=== PATIENT | female | born 1995 | race Caucasian/White ===

== ENCOUNTER → 2018-06-08 | Outpatient (CLI) | payer OTHER ==
[2018-06-08 15:01] LABS: Basophils # (A) 0.1 k/uL (0-0.2); Basophils % (A) 1 %; Eosinophils # (A) 0.1 k/uL (0-0.7); Eosinophils % (A) 1 %; HCT 40.6 % (34.0-46.0); HGB 13.5 gm/dL (11.4-16.0); Lymphocytes # (A) 2.6 k/uL (1.0-4.8); Lymphocytes % (A) 32 %; MCH 31.6 pg (25.0-35.0); MCHC 33.3 g/dL (31.0-37.0); MCV 95.2 fL (80.0-100.0); Mean Platelet Volume 7.6; Monocytes # (A) 0.4 k/uL (0-1.0); Monocytes % (A) 5 %; Neutrophils # (A) 4.9 k/uL (1.3-7.7); Neutrophils % (A) 59 %; Platelet Count 248 k/uL (150-450); RBC 4.27 m/uL (3.80-5.40); RDW 12.6 % (11.5-15.5); WBC 8.2 k/uL (4.0-11.0)
== END | disposition home or self-care (01) ==
LOC: LABWHC1 14:24
PROVIDERS: ATTEND Obstetrics & Gynecology
DX: N92.0 Excessive and frequent menstruation with regular cycle (principal)
CPT/HCPCS: 36415; 85025

== ENCOUNTER → 2022-03-27 | Outpatient (CLI) | payer BC ==
[2022-03-27 14:49] LABS: Basophils # (A) 0.04 X 10*3/uL (0.00-0.10); Basophils % (A) 0.6 %; Eosinophils # (A) 0.06 X 10*3/uL (0.04-0.35); Eosinophils % (A) 0.8 %; HCT 40.4 % (37.2-46.3); HGB 13.1 g/dL (12.0-15.0); Immature Grans, Automated 0.4 %; Lymphocytes # (A) 2.01 X 10*3/uL (0.90-5.00); Lymphocytes % (A) 28.3 %; MCH 31.3 pg (27.0-32.0); MCHC 32.4 g/dL (32.0-37.0); MCV 96.7 fL (80.0-97.0); Mean Platelet Volume 11.8 fL (9.5-12.2); NRBC Per 100 WBC 0 /100 WBCS (0.0-0.0); Neutrophils # (A) 4.46 X 10*3/uL (1.80-7.70); Neutrophils % (A) 62.9 %; Platelet Count 268 X 10*3/uL (140-440); RBC 4.18 X 10*6/uL (4.10-5.20); RDW 11.9 % (11.5-14.5)
[2022-03-27 16:14] LABS: Estradiol 80.6 pg/mL
[2022-03-27 16:17] LABS: ALT 32 U/L (8-44); AST 25 U/L (13-35); Albumin 4.5 g/dL (3.8-4.9); Albumin/Globulin Ratio 1.73 (1.60-3.17); Alkaline Phosphatase 73 U/L (41-126); Blood Urea Nitrogen 10.6 mg/dL (9.0-27.0); Calcium 9.7 mg/dL (8.7-10.3); Carbon Dioxide 23.9 mmol/L (20.0-27.5); Chloride 103 mmol/L (96-109); Chol/HDL Ratio 3.06 Ratio; Follicle Stimulating Hormone 5.4 mIU/mL; Globulin 2.6 g/dL (1.6-3.3); Glucose 100 mg/dL (70-110); Luteinizing Hormone 8.6 mIU/mL; Non-African American GFR(CKD) 101.8 (60.0-200.0); Potassium 4.6 mmol/L (3.5-5.5); Sodium 139 mmol/L (135-145); Total Protein 7.1 g/dL (6.2-8.2); VLDL Calculation 12.16 mg/dL (5.00-40.00)
== END | disposition home or self-care (01) ==
LOC: LABWHC1 08:34
PROVIDERS: ATTEND Family Medicine
DX: E78.5 Hyperlipidemia, unspecified (principal)
CPT/HCPCS: 36415; 80053; 80061; 82626; 82670; 83001; 83002; 83036; 83525; 84403; 84443; 85025

== ENCOUNTER 2024-01-30 23:58 | Outpatient (CLI) | payer BC ==
[2024-01-31 02:49] VITALS: BP 126/83; PULSE 91; RESP 16; TEMP 97.3
--- NOTE | 2024-02-11 09:28 | P.MSEPDOC ---
Presenting Problems - Arrival Data Date of Arrival on Unit: 01/30/24 Time of Arrival on Unit: 23:58 Mode of Transport: Ambulatory - Complaint OB-Reason for Admission/Chief Complaint: Possible Onset of Labor Comment: patient presents to triage with contractions 7 min apart, rating contractions 3/10 for pain. Medical History - Information : 1 Para: 0 Term: 0 : 0 Abortions: Spontaneous or Elective: 0 Number of Living Children: 0 - Gestational Age Gestational Age by ALEXANDR (wks/days): 38 Weeks and 0 Days Review of Systems - Review of Systems Constitutional: No problems Breast: No problems ENT: No problems Cardiovascular: No problems Respiratory: No problems Gastrointestinal: No problems Genitourinary: No problems Musculoskeletal: No problems Neurological: No problems Skin: No problems Vital Signs - Temperature Temperature: 97.3 F Temperature Source: Temporal Artery Scan - Pulse Pulse Oximetery Pulse Rate: 91 Pulse Assessment Method: Pulse Oximetry - Respirations Respiratory Rate: 16 Oxygen Delivery Method: Room Air O2 Sat by Pulse Oximetry: 97 - Blood Pressure Right Arm Blood Pressure: 126/83 Blood Pressure Mean: 97 Blood Pressure Source: Automatic Cuff Physician Notification - Physician Notified Physician Notified Date: 01/31/24 Physician Notified Time: 01:10 Physician: Greg Mendez Maternal Triage Index - Maternal Triage Index Presenting for scheduled procedure w/no complaint: No - Stat/Priority 1 Stat Priority 1: No - Urgent/Priority 2 Urgent Priority 2: No - Prompt/Priority 3 Prompt Priority 3: No - Non-Urgent/Priority 4 Non-Urgent Priority 4: Yes Criteria Met for Priority 4: patient presents to triage with contractions 7 min apart, rating contractions 3/10 for pain. Disposition - Disposition OB Disposition: Discharge to home Discharge Date: 01/31/24 Discharge Time: 02:31 I agree with the RN Medical Screening Exam: Yes Physician's MSE Comment: I have neither seen nor examined the patient. Case reviewed; plan agreed upon as documented in EMR&OBIX.: Yes Diagnosis: RELATED CONDITIONS, UNSPECIFIED, THIRD TRIMESTER
== END 2024-01-31 02:31 ==
LOC: FBPOP 23:58 → MERGE 23:58 → FBPOP 01-31 02:31
PROVIDERS: ATTEND Obstetrics & Gynecology
DX: O47.1 False labor at or after 37 completed weeks of gestation (principal); Z3A.38 38 weeks gestation of pregnancy; Z88.2 Allergy status to sulfonamides
CPT/HCPCS: 59025; 99213

== ENCOUNTER 2024-02-14 10:11 | Inpatient (IN) | payer BC ==
[2024-02-14] MEDS ORDERED: miSOPROStoL 200 MCG TAB PO PRN (10:34)
[2024-02-14] MEDS ORDERED: TRANEXAMIC 1,000 MG/100ML-NACL 1,000 MG in EMPTY BAG 1 BAG IV PRN (10:34)
[2024-02-14] MEDS ORDERED: LIDOCAINE 0.5% (PF) 5 MG/ML (50 ML SDV) SQ PRN (10:34)
[2024-02-14] MEDS ORDERED: CARBOPROST TROMETHAMINE 250 MCG/ML 1 ML AMP IM PRN (10:34)
[2024-02-14] MEDS ORDERED: METHYLERGONOVINE 0.2 MG/ML 1 ML AMP IM PRN (10:34)
[2024-02-14] MEDS ORDERED: TERBUTALINE 1 MG/ML VIAL SQ PRN (10:34)
[2024-02-14] MEDS ORDERED: OXYTOCIN 10 UNIT/ML 1 ML VIAL IM PRN (10:34)
[2024-02-14 12:30] LABS: Basophils % (A) 0 %; Eosinophils % (A) 0 %; HCT 36.7 % (34.0-46.0); HGB 12.7 gm/dL (11.4-16.0); Lymphocytes # (A) 1.5 k/uL (1.0-4.8); Lymphocytes % (A) 18 %; MCH 32.8 pg (25.0-35.0); MCHC 34.6 g/dL (31.0-37.0); MCV 94.9 fL (80.0-100.0); Mean Platelet Volume 10.8; Monocytes # (A) 0.3 k/uL (0-1.0); Monocytes % (A) 4 %; Neutrophils # (A) 6.3 k/uL (1.3-7.7); Neutrophils % (A) 76 %; Platelet Count 174 k/uL (150-450); RBC 3.86 m/uL (3.80-5.40); RDW 13.6 % (11.5-15.5); WBC 8.2 k/uL (3.8-10.6)
[2024-02-14] MEDS: LACTATED RINGERS 1,000 ML IV SCH (12:32)
[2024-02-14] MEDS: DINOPROSTONE 10 MG INSERT.ER VAGINAL ONE (13:04)
[2024-02-15] MEDS: NALBUPHINE 10 MG/ML (10 ML MDV) IV PRN (01:31)
[2024-02-15] MEDS: OXYTOCIN 30 UNITS/500 ML NS 30 UNIT in SALINE 1 500ML.BAG IV SCH (03:06)
[2024-02-15] MEDS ORDERED: ROPIVACAINE 5 MG/ML 30 ML VIAL ONE (10:30)
[2024-02-15] MEDS ORDERED: fentaNYL (PF) 50 MCG/ML 5 ML AMP ONE (10:30)
[2024-02-15] MEDS ORDERED: SODIUM CHLORIDE 0.9% 250 ML BAG ONE (10:30)
[2024-02-15] MEDS ORDERED: TRANEXAMIC 1,000 MG/100ML-NACL 1,000 MG in EMPTY BAG 1 BAG IV PRN ×2 (18:21→18:39)
[2024-02-15] MEDS ORDERED: CARBOPROST TROMETHAMINE 250 MCG/ML 1 ML AMP IM PRN ×2 (18:21→18:39)
[2024-02-15] MEDS ORDERED: miSOPROStoL 200 MCG TAB PO PRN ×2 (18:21→18:39)
[2024-02-15] MEDS: CITRIC ACID-SODIUM CITRATE 15 ML CUP PO ONE ×2 (18:35→20:39)
[2024-02-15] MEDS ORDERED: METHYLERGONOVINE 0.2 MG/ML 1 ML AMP IM PRN (18:39)
[2024-02-15] MEDS ORDERED: OXYTOCIN 10 UNIT/ML 1 ML VIAL IM PRN (18:39)
[2024-02-15] MEDS ORDERED: OXYTOCIN 30 UNITS/500 ML NS BAG IV ONE (18:52)
[2024-02-15] MEDS ORDERED: MORPHINE SULFATE (PF) 0.3 MG/0.3 ML SYR ONE (18:52)
[2024-02-15] MEDS ORDERED: fentaNYL (PF) 50 MCG/ML 2 ML AMP ONE (18:52)
[2024-02-15] MEDS ORDERED: ONDANSETRON 4 MG/2 ML VIAL ONE (18:52)
--- NOTE | 2024-02-15 19:36 | P.OP ---
Date of Procedure: 02/15/24 Preoperative Diagnosis: IUP at 40 and 0, oligohydramnios, arrest of dilation with noted cervical swelling suspected malpresentation, OP Postoperative Diagnosis: Same Procedure(s) Performed: Primary low-transverse section Anesthesia: spinal Surgeon: Shirin Noguera Special Systems Technician #1: Darby Willingham Estimated Blood Loss (ml): 680 IV fluids (ml): 600 Urine output (ml): 400 Pathology: other (Placenta) Condition: stable Disposition: observation Indications for Procedure: 28-year-old 1 para 0 at 40-0/7 weeks that presented to labor and delivery yesterday and had Cervidil placed for induction of labor around lunchtime for oligohydramnios. Patient was noted to be 1 to 2 cm upon placement of Cervidil. Patient made no change through the evening and Cervidil was removed around 1 AM, patient was noted to be attila every 1 to 2 minutes therefore Pitocin was held until 3 AM. Pitocin was begun per hospital protocol. Patient underwent amniotomy this morning noting scant clear fluid given diagnosis of oligohydramnios. heart tones have been category 1 to category 2 through the day. Patient made very slow progress to 8 cm. Patient did progressed to 9 cm and an hour later had significant cervical swelling with 8 cm appreciated on examination. Patient was counseled on exam and cervical swallowing noted. Patient elected primary . Discussion was had with patient and her significant other multiple questions were answered and decision was made together. Operative Findings: Viable male infant delivered, weight of 6 pounds 15 ounces, normal uterus tubes and ovaries were appreciated. Description of Procedure: The patient was prepped and draped in the usual fashion after spinal anesthesia was administered by the anesthesia department. A Pfannenstiel incision was made and extended of the abdominal cavity without difficulty. The bladder peritoneum was elevated and incised and reflected distally. A 2 cm incision was made in the transverse plane of the lower uterine segment to enter the uterus at which time clear fluid was noted. The incision was extended in both directions using the bandage scissors. The head was encountered within the field and delivered up and through the incision where the nose and mouth were thoroughly suctioned. Remainder of the infant was delivered onto the surgical field where the cord was doubly clamped, cut, and the infant was passed for resuscitative measures with weight as noted above. The placenta was delivered manually, intact, and was grossly normal with a grossly normal three-vessel cord. The uterus was exteriorized and the interior cavity of the uterus swept of any remaining placental and membranous fragments with a laparotomy sponge. The margins of the incision were grasped with Hurtado clamps and the incision closed in 2 layers. First layer was a running locking layer of 0 chromic from margin to margin followed by a second layer of imbricating 0 Vicryl from margin to margin. Any small points of bleeding were then made hemostatic with the Bovie. Once hemostasis was achieved, the posterior cul-de-sac was suctioned with a guard and the uterine and ovarian findings are as noted above. The uterus was replaced within the abdominal cavity and the gutters swept of any remaining blood fluid or clot. The incision was again reexamined and hemostasis was noted to be excellent. Any small point of bleeding were made hemostatic with the Bovie. Once hemostasis was achieved the parietal peritoneum was loosely reapproximated. The layer of muscles were examined and made hemostatic with the Bovie. Attention was then turned to the fascia which was closed with 2 running stitches of 0 Vicryl proceeding from 1 lateral edge to the other. The subcutaneous tissues were irrigated, made hemostatic with the Bovie, and reapproximated with a running stitch of 30 plain catgut. The skin was reapproximated with 4-0 Vicryl. Estimated blood loss for the case was approximately 680 mL. All sponge instrument and needle counts are correct. There were no complications. The patient tolerated the procedure well and proceeded to the recovery room in stable condition. Both mother and are resting comfortably in recovery.
--- NOTE | 2024-02-15 19:37 | P.HPOB ---
History of Present Illness H&P Date: 02/14/24 Chief Complaint: IUP at 40-0/7 weeks, oligohydramnios Is a 28-year-old 1 para 0 at 40-0/7 weeks that presented to the office for routine visit. NST and ultrasound for EFW CHRISTIAN was completed. Amniotic fluid and ex was noted to be 4.8, EFW 7 pounds 2 ounces or 20th percentile. Patient had a reactive NST. Patient was counseled on results of ultrasound and need for induction of labor. Patient states she was unsure whether or not her water broke in the shower this morning. Patient had initial gush of fluid but then no further leaking. AmniSure was negative on labor and delivery Patient has been receiving routine care which has been essentially uncomplicated. Patient has noted good movement denies contractions. Review of Systems Constitutional: Denies chills, Denies fatigue, Denies fever Ears, nose, mouth and throat: Denies headache Cardiovascular: Reports leg edema, Denies edema Respiratory: Denies dyspnea Gastrointestinal: Denies constipation, Denies diarrhea, Denies nausea, Denies vomiting Genitourinary: Reports Past Medical History Past Medical History: No Reported History History of Any Multi-Drug Resistant Organisms: None Reported Past Surgical History: No Surgical Hx Reported Past Anesthesia/Blood Transfusion Reactions: No Reported Reaction Past Psychological History: No Psychological Hx Reported Smoking Status: Never smoker Past Alcohol Use History: None Reported Past Drug Use History: None Reported Medications and Allergies Home Medications Medication Instructions Recorded Confirmed Type Vit No.179/Iron/Folic 1 each PO DAILY 01/30/24 02/14/24 History [ Tablet] Ascorbic Acid [Vitamin C] 500 mg PO DAILY 02/14/24 02/14/24 History Allergies Allergy/AdvReac Type Severity Reaction Status Date / Time Sulfa (Sulfonamide Allergy Rash/Hives Verified 02/14/24 10:33 Antibiotics) Exam Osteopathic Statement: *. No significant issues noted on an osteopathic structural exam other than those noted in the History and Physical/Consult. Vital Signs Temp Pulse Resp BP Pulse Ox 02/14/24 11:20 98.9 F 85 16 138/84 98 Intake and Output 02/13/24 02/14/24 02/14/24 22:59 06:59 14:59 Other: Weight 104.326 kg Targeted physical exam is performed this date General is well-nourished well-developed female in no acute distress, breathing is nonlabored, heart has a regular rate and rhythm, abdomen is gravid and appropriate gestational age, on cervical exam she is 1/70/-2 station vertex presentation, Cervidil is placed without difficulty. heart tones are noted to be category 1 and she is attila irregularly. Results Result Diagrams: 02/14/24 11:55 Assessment and Plan (1) Term Current Visit: Yes Status: Acute Code(s): Z34.90 - ENCNTR FOR SUPRVSN OF NORMAL , UNSP, UNSP TRIMESTER SNOMED Code(s): 67501682
[2024-02-15] MEDS ORDERED: METOCLOPRAMIDE 5 MG/ML 2 ML VIAL IVP PRN (19:41)
[2024-02-15] MEDS ORDERED: SIMETHICONE 80 MG CHEWABLE PO PRN (19:41)
[2024-02-15] MEDS ORDERED: ZOLPIDEM 5 MG TAB PO PRN (19:41)
[2024-02-15] MEDS ORDERED: diphenhydrAMINE 50 MG CAP PO PRN (19:41)
[2024-02-15] MEDS ORDERED: ONDANSETRON 4 MG/2 ML VIAL IVP PRN (19:41)
[2024-02-15] MEDS ORDERED: diphenhydrAMINE 25 MG CAP PO PRN (19:41)
[2024-02-15] MEDS ORDERED: diphenhydrAMINE 50 MG/ML 1 ML VIAL IVP PRN ×2 (19:41)
[2024-02-15] MEDS ORDERED: NALOXONE 0.4 MG/ML 1 ML VIAL IV PRN ×2 (19:41→20:24)
[2024-02-15] MEDS: LACTATED RINGERS 1,000 ML IV SCH (21:47)
[2024-02-15] MEDS: SENNOSIDES-DOCUSATE SODIUM 1 EACH TAB PO SCH (22:29)
[2024-02-15] MEDS: ACETAMINOPHEN TAB 500 MG TAB PO SCH (22:30)
[2024-02-15] MEDS: ACETAMINOPHEN IV (For NPO) 1,000 MG in EMPTY BAG 1 BAG IVPB SCH (23:20)
[2024-02-16] MEDS: IBUPROFEN IV 800 MG in SODIUM CHLORIDE 0.9% 250 ML IV SCH (00:28)
[2024-02-16] MEDS: IBUPROFEN 600 MG TAB PO SCH (04:01)
[2024-02-16 06:33] LABS: Basophils % (A) 0 %; Eosinophils % (A) 0 %; HCT 29.1 % (34.0-46.0); HGB 10.2 gm/dL (11.4-16.0); Lymphocytes # (A) 1.2 k/uL (1.0-4.8); Lymphocytes % (A) 9 %; MCHC 34.9 g/dL (31.0-37.0); MCV 94.8 fL (80.0-100.0); Mean Platelet Volume 10.4; Monocytes # (A) 0.6 k/uL (0-1.0); Monocytes % (A) 4 %; Neutrophils # (A) 11.4 k/uL (1.3-7.7); Neutrophils % (A) 85 %; Platelet Count 140 k/uL (150-450); RBC 3.07 m/uL (3.80-5.40); RDW 13.7 % (11.5-15.5); WBC 13.4 k/uL (3.8-10.6)
--- NOTE | 2024-02-16 06:55 | P.PN ---
Progress Note - Text Progress Note Date: 02/16/24 Postoperative day 1 status post section under spinal anesthesia, and intrathecal morphine given for postoperative analgesia, patient doing well, there is no anesthesia related complications, Patient had no headache, vital signs stable , Assessment and plan= postop day 1 status post , doing well there is no anesthesia related complication.
[2024-02-16] MEDS: PRENATAL VIT-IRON-FOLIC ACID 1 EACH TABLET PO SCH (07:55)
[2024-02-17 08:05] VITALS: BP 129/86; PULSE 89; RESP 16; TEMP 98.3
--- NOTE | 2024-02-17 09:39 | P.PNOBGPC ---
Subjective - Subjective Principal diagnosis: Postop day 1 s/p section, late entry Interval history: Patient is doing well on this post op day 1 She states her pain is well-controlled. She is ambulating voiding without difficulty. States her lochia is minimal. She is breast-feeding with some difficulty Patient reports: Reports appetite normal, Reports voiding normally, Reports pain well controlled, Reports ambulating normally : doing well, nursing well Objective - Vital Signs Latest vital signs: Vital Signs Temp Pulse Resp BP Pulse Ox 02/17/24 08:00 98.3 F 89 16 129/86 97 02/17/24 00:00 98.0 F 78 18 120/68 02/16/24 16:00 98.1 F 89 18 109/73 97 Intake and Output 02/16/24 02/17/24 02/17/24 22:59 06:59 14:59 Intake Total 750 Balance 750 Intake: Oral 750 Other: Voiding Method Toilet Toilet # Voids 2 2 2 - Exam Extremities: Present: edema Abdomen: Present: normal appearance, soft Incision: Present: normal, dry Uterus: Present: normal, firm Assessment and Plan (1) Term Current Visit: Yes Status: Acute Code(s): Z34.90 - ENCNTR FOR SUPRVSN OF NORMAL , UNSP, UNSP TRIMESTER SNOMED Code(s): 29601324 (2) Arrest of dilation, delivered, current hospitalization Current Visit: Yes Status: Acute Code(s): O62.1 - SECONDARY UTERINE INERTIA SNOMED Code(s): 96226743 (3) Status post section Current Visit: Yes Status: Acute Code(s): Z98.891 - HISTORY OF UTERINE SCAR FROM PREVIOUS SURGERY SNOMED Code(s): 695953210 Plan: 28-year-old 1 now para 1 status post primary for arrest of dilation. Patient is doing well on this postop day #1. Plan to continue routine postoperative care
--- NOTE | 2024-02-17 09:42 | P.DS ---
Providers Date of admission: 02/14/24 10:15 Expected date of discharge: 02/17/24 Attending physician: Shirin Noguera Primary care physician: Stated None - Discharge Diagnosis(es) (1) Term Current Visit: Yes Status: Acute (2) Arrest of dilation, delivered, current hospitalization Current Visit: Yes Status: Acute (3) Status post section Current Visit: Yes Status: Acute Hospital Course: 28-year-old 1 now para 1 that presented to labor and delivery for Cervidil induction of labor on 02/13. Patient was seen in the office and oligohydramnios was noted. Patient was counseled on need for induction of labor. Patient was noted to be 40-1/7 weeks. Patient was admitted to labor and delivery and Cervidil induction of labor was begun. Patient had noted contractions through the evening with minimal cervical change. Patient had Pitocin augmentation of labor began around 3 AM, amniotomy was performed around 8:30 AM. Clear fluid was obtained scant in nature. Patient made slow progress through labor eventually getting to 8 cm. After approximately 2 hours of being 8 cm on cervical exam the cervix was noted to be swollen with increasing caput formation of the head. Patient was counseled on cervical exam and need for primary . Patient and agreed and requested primary C- section. Patient was taken back to the operating suite where spinal anesthesia was found be adequate. Patient delivered a viable male infant at 1908, weight of 6 pounds 15 ounces. Occiput transverse presentation was noted on delivery. Patient's postoperative course has been uneventful. In this postoperative day #2 she is ambulating voiding without difficulty. She is tolerating a regular diet without nausea or vomiting. States her pain is well-controlled. She is struggling somewhat with breast-feeding and will continue to work on breast- feeding today prior to discharge. Patient Condition at Discharge: Good Plan - Discharge Summary New Discharge Prescriptions: No Action Ascorbic Acid [Vitamin C] 500 mg PO DAILY Vit No.179/Iron/Folic [ Tablet] 1 each PO DAILY Discharge Medication List Vit No.179/Iron/Folic [ Tablet] 1 each PO DAILY 01/30/24 [History] Ascorbic Acid [Vitamin C] 500 mg PO DAILY 02/14/24 [History] Follow up Appointment(s)/Referral(s): Shirin Noguera DO [Doctor of Osteopathic Medicine] - 03/28/24 10:45 am (Post C/S Appointment 02-28-2024 at 10:45am) Patient Instructions/Handouts: (DC), (GEN) Activity/Diet/Wound Care/Special Instructions: No intercourse, tampons or douching. No heavy lifting greater than a gallon of milk. No driving for two weeks. Call with any fever, shakes or chills, with any pain not alleviated by over the counter meds, or with any quesions or concerns. Wlly-jma-hnicank ibuprofen 600 mg or 3 tablets every 6 hours as needed for pain. Patient is to call the office to make a routine postoperative appointment in 2 weeks. Discharge Disposition: HOME SELF-CARE
== END 2024-02-17 17:00 | disposition home or self-care (01) | DRG 788 ==
LOC: 4FBP 10:15 → MERGE 10:15
PROVIDERS: ADMIT Obstetrics & Gynecology Obstetrics; ATTEND Obstetrics & Gynecology Obstetrics
PROC: 3E0P7VZ Introduction of Hormone into Female Reproductive, Via Natural or Artificial Opening (ICD-10-PCS; 2024-02-14)
PROC: 3E033VJ Introduction of Other Hormone into Peripheral Vein, Percutaneous Approach (ICD-10-PCS; principal; 2024-02-15 19:00)
PROC: 10D00Z1 Extraction of Products of Conception, Low, Open Approach (ICD-10-PCS; principal; 2024-02-15 19:00)
PROC: 10907ZC Drainage of Amniotic Fluid, Therapeutic from Products of Conception, Via Natural or Artificial Opening (ICD-10-PCS; principal; 2024-02-15 19:00)
DX: O41.03X0 Oligohydramnios, third trimester, not applicable or unspecified (principal); O62.0 Primary inadequate contractions; O32.2XX0 Maternal care for transverse and oblique lie, not applicable or unspecified; O61.0 Failed medical induction of labor; Z28.310 Unvaccinated for COVID-19; Z88.2 Allergy status to sulfonamides; Z3A.40 40 weeks gestation of pregnancy; Z37.0 Single live birth
CPT/HCPCS: 85025; 86850; 86900; 86901